=== PATIENT | female | born 1960 | race Caucasian/White ===

== ENCOUNTER → 2021-10-15 09:48 | Outpatient (CLI) | payer OTHER, SELFPAY ==
--- NOTE | ~2021-10-15 | US_ITS ---
EXAMINATION: US pelvic complete DATE: 10/15/2021 10:04 INDICATION: Pelvic pain,pressure,and bloating TECHNIQUE: Multiple transabdominal sonographic images of the pelvis were obtained. COMPARISON: 06/26/2012 FINDINGS: Uterus: 7.6 x 2.9 x 4.3 cm. Endometrial complex measures 0.3 cm. Right Ovary: Not visualized Left Ovary: Not visualized. No free fluid. Partially visualized bladder is grossly normal. IMPRESSION: 1. Nonvisualization of the ovaries. 2. Otherwise normal pelvic sonogram findings. Reviewed, dictated and finalized at location K.
== END ==
PROVIDERS: PCP Nurse Practitioner; Visit Provider Nurse Practitioner
DX: R10.2 Pelvic and perineal pain (principal); R14.0 Abdominal distension (gaseous)
CPT/HCPCS: 76856